=== PATIENT | male | born 1990 | race African-American/Black ===

== ENCOUNTER 2016-08-03 00:58 | Emergency (ER) | payer OTHER ==
[~2016-08-03] VITALS: Ht 167.6 cm; Wt 65.8 kg
[~2016-08-03 00:58] MED LIST: FLAGYL500 MG PO; NAPROSYN500 MG PO; NOHOMEMEDICATIONS
[2016-08-03] MEDS ORDERED: FLEXERIL PO (03:17)
[2016-08-03] MEDS ORDERED: IBUPROFEN 600600 M1 PO (03:17)
[2016-08-03 03:30] VITALS: BP 124/70
== END 2016-08-03 03:30 | disposition home or self-care (01) ==
LOC: ER 00:58
DX: S09.8XXA Other specified injuries of head, initial encounter (principal); S16.1XXA Strain of muscle, fascia and tendon at neck level, initial encounter; S29.012A Strain of muscle and tendon of back wall of thorax, initial encounter; Z86.11 Personal history of tuberculosis; F19.10 Other psychoactive substance abuse, uncomplicated; V49.9XXA Car occupant (driver) (passenger) injured in unspecified traffic accident, initial encounter; Y93.89 Activity, other specified; Y92.89 Other specified places as the place of occurrence of the external cause; Y99.8 Other external cause status

== ENCOUNTER 2019-05-29 14:19 | Emergency (ER) | payer OTHER ==
[~2019-05-29] VITALS: Ht 167.6 cm; Wt 65.8 kg
[~2019-05-29 14:19] MED LIST changes: +FLEXERIL PO; +IBUPROFEN 600600 M1 PO
[2019-05-29 14:30] VITALS: BP 141/85
[2019-05-29] MEDS ORDERED: NORCO 5-325 TA1 EAC1 PO (14:33)
[2019-05-29] MEDS ORDERED: CLEOCIN HCL150 MG PO (15:18)
[2019-05-29] MEDS ORDERED: MAGIC MOUTHWASH SWISH&SPIT (15:19)
== END 2019-05-29 16:05 | disposition home or self-care (01) ==
LOC: ER 14:19
DX: J02.0 Streptococcal pharyngitis (principal); M54.5 Low back pain; Z79.899 Other long term (current) drug therapy

== ENCOUNTER 2020-04-19 13:06 | Emergency (ER) | payer OTHER ==
[~2020-04-19] VITALS: Ht 167.6 cm; Wt 67.1 kg
[~2020-04-19 13:06] MED LIST changes: +CLEOCIN HCL150 MG PO; +MAGIC MOUTHWASH SWISH&SPIT; +NORCO 5-325 TA1 EAC1 PO
[2020-04-19 13:40] LABS: URINE BILIRUBIN NEGATIVE (Negative); URINE BLOOD TRACE (Negative); URINE CLARITY CLEAR; URINE COLOR YELLOW; URINE GLUCOSE-RANDOM* NEGATIVE (Negative); URINE KETONES NEGATIVE (Negative); URINE LEUKOCYTES-REFLEX NEGATIVE (Negative); URINE NITRITE-REFLEX NEGATIVE (Negative); URINE PROTEIN (DIPSTICK) 1+ (Negative); URINE UROBILINOGEN 0.2 E.U./dl (0.2-1.0)
[2020-04-19 14:04] LABS: CASTS None Seen /LPF (None Seen); MUCUS 0-3 Light strn/LPF (None Seen); SQUAMOUS 0-3 Few /LPF (0-3)
[2020-04-19 14:05] LABS: AMORPHOUS PHOSPHATES Moderate /LPF (None Seen); BACTERIA-REFLEX 1-9 Few /HPF (None Seen); URINE RBC 0-2 Rare /HPF (0-2); URINE WBC-REFLEX 0-5 Rare /HPF (0-5)
[2020-04-19 14:54] VITALS: BP 151/76
== END 2020-04-19 14:55 | disposition home or self-care (01) ==
LOC: ER 13:06
PROVIDERS: Physician Assistant
DX: T21.06XA Burn of unspecified degree of male genital region, initial encounter (principal); Z11.3 Encounter for screening for infections with a predominantly sexual mode of transmission; X11.8XXA Contact with other hot tap-water, initial encounter; Y93.E1 Activity, personal bathing and showering; Y92.89 Other specified places as the place of occurrence of the external cause; Y99.9 Unspecified external cause status

== ENCOUNTER 2021-01-27 12:26 | Emergency (ER) | payer OTHER ==
[~2021-01-27] VITALS: Ht 167.6 cm; Wt 65.8 kg
[2021-01-27 12:30] VITALS: BP 122/80
== END 2021-01-27 13:26 | disposition home or self-care (01) ==
LOC: ER 12:26
DX: N48.89 Other specified disorders of penis (principal); Z79.899 Other long term (current) drug therapy